=== PATIENT | male | born 1945 | race Caucasian/White ===

== ENCOUNTER → 2016-08-02 | Outpatient (REF) | payer MEDICARE ==
[2016-08-02 12:54] LABS: ALBUMIN/GLOBULIN RATIO 1.29 (1.00-1.93); ALKALINE PHOSPHATASE 87 U/L (45-117); ALT/SGPT 28 U/L (12-78); ANION GAP 10 MEQ/L (8-16); AST/SGOT 20 U/L (15-37); BILIRUBIN,TOTAL 0.8 MG/DL (0.2-1.0); BLOOD UREA NITROGEN 14 MG/DL (7-18); CALCIUM LEVEL 9.1 MG/DL (8.8-10.2); CARBON DIOXIDE LEVEL 29 MEQ/L (21-32); CHLORIDE LEVEL 94 MEQ/L (98-107); CHOLESTEROL LEVEL 180 MG/DL (<200); CREATININE FOR GFR 1.11 MG/DL (0.70-1.30); GLOMERULAR FILTRATION RATE > 60.0 (>42); GLUCOSE, FASTING 95 MG/DL (83-110); POTASSIUM SERUM 4.5 MEQ/L (3.5-5.1); SODIUM LEVEL 133 MEQ/L (136-145); TOTAL PROTEIN 7.1 GM/DL (6.4-8.2); TRIGLYCERIDES LEVEL 58 MG/DL (<150)
== END ==
LOC: M SFHCADAM 08:50
PROVIDERS: ATTEND Physician Assistant Medical
DX: I25.10 Atherosclerotic heart disease of native coronary artery without angina pectoris (principal); E78.4 Other hyperlipidemia

== ENCOUNTER → 2016-09-04 | Outpatient (CLI) | payer MEDICARE ==
--- NOTE | 2016-09-04 08:43 | REP ---
Clinical: History of abdominal aortic repair. Technique: Real time valencia scale ultrasound examination using curved array transducer. Findings: Visualized abdominal aorta is without obvious aneurysm and no periaortic fluid collections are identified. Proximal aorta 2.2 x 2.3 cm. Mid aorta 2.6 x 2.8 cm. Distal aorta at 2.8 x 2.8 cm. Right common iliac artery 0.8 x 0.7 cm. Left common iliac artery 0.9 x 0.9 cm. Impression: Normal caliber aorta. No obvious aneurysm appreciated. Signed by Sukhdeep Obrien MD 09/04/2016 08:35 A
== END ==
LOC: M RAD 07:42
PROVIDERS: ATTEND Family Medicine
DX: I71.4 Abdominal aortic aneurysm, without rupture (principal)

== ENCOUNTER → 2016-10-09 | Outpatient (REF) | payer MEDICARE ==
[2016-10-09 19:48] LABS: BLOOD UREA NITROGEN 17 MG/DL (7-18); CREATININE FOR GFR 1.25 MG/DL (0.70-1.30); GLOMERULAR FILTRATION RATE > 60.0 (>42)
== END ==
LOC: M LAB REF 09:31
PROVIDERS: ATTEND Internal Medicine Pulmonary Disease
DX: R91.8 Other nonspecific abnormal finding of lung field (principal)

== ENCOUNTER → 2016-11-12 | Outpatient (CLI) | payer MEDICARE ==
[~2016-11-12] MED LIST: ISOVUE-370 76% 100ML VIAL (Q9967) As Ordered ONE
--- NOTE | 2016-11-12 17:51 | REP ---
CT CHEST WITH IV CONTRAST: TECHNIQUE: Axial contrast enhanced images from the thoracic inlet to the upper abdomen using 100 mL Isovue 370 intravenous contrast material with multiplanar reformations. COMPARISON: 11/01/2015 and 04/22/2015. Once again there is a left upper lobe paramediastinal cystic structure identified. This does not appear to significantly enhance. It has increased in length in the AP dimension, from about 3.0 cm to 4.6 cm however it is thinner in the transverse dimension, now about 1.5 cm in maximum transverse dimension, previously 1.9 cm. It has increased in craniocaudal dimension. A calcified granuloma is seen in the left lower lobe. No significant abnormal parenchymal opacity is seen in the right lug. Normal sized mediastinal and hilar lymph nodes are present. Mild scattered atherosclerotic calcifications are seen of the thoracic aorta without aneurysm. Heart is normal in size. There is no pleural or pericardial effusion. Calcified granuloma is seen in the liver. There is a cyst in the upper pole of the left kidney. IMPRESSION: Left upper lobe paramediastinal cystic structure with lobulated margins and has become longer in the AP dimension but thinner in the transverse dimension. However it also has also appears to have increased in cranial caudal dimension. Overall the structure seems to have mildly increased in size since the prior studies in a slow, gradual fashion. No other new significant findings. Signed by Alf Sinclair MD 11/13/2016 07:43 P
== END ==
LOC: M RAD 11:09
PROVIDERS: ATTEND Internal Medicine Pulmonary Disease
DX: R91.8 Other nonspecific abnormal finding of lung field (principal)
CPT/HCPCS: 71260; Q9967

== ENCOUNTER → 2017-05-10 | Outpatient (CLI) | payer OTHER ==
--- NOTE | 2017-05-10 15:20 | REP ---
RIGHT KNEE SERIES: Five views. HISTORY: Right knee pain. FINDINGS: By views right knee demonstrate vascular calcification and some diffuse osteopenia. There is no evidence of joint effusion, joint spaces are preserved. No evidence of arthropathy. IMPRESSION: Vascular calcification and diffuse osteopenia. Otherwise negative. Signed by Rick Darden MD 05/10/2017 07:17 P
--- NOTE | 2017-05-10 15:36 | REP ---
Right hip series: Two views. History: Pain in the right leg. Comparison radiographs June 29, 2014. Findings: AP and frog-leg views of the right hip demonstrate surgical clips in the right groin soft tissues and some vascular calcification. Femoral head is smooth and rounded. Hip joint space is preserved. There is minimal superior acetabular spurring. No erosive change is seen. Impression: Minimal superior acetabular spurring. Vascular calcification and right groin surgical clips. Otherwise negative. Signed by Rick Darden MD 05/10/2017 07:17 P
== END ==
LOC: M ADAMS 14:28
PROVIDERS: ATTEND Physician Assistant Medical
DX: M25.751 Osteophyte, right hip (principal); M25.761 Osteophyte, right knee; I70.201 Unspecified atherosclerosis of native arteries of extremities, right leg; Z98.890 Other specified postprocedural states

== ENCOUNTER → 2017-08-26 | Outpatient (REF) | payer OTHER ==
[2017-08-26 13:06] LABS: BASO # 0.1 10^3/uL (0.0-0.2); BASO % 0.9 % (0.0-1.0); EOS # 0.1 10^3/uL (0.0-0.50); HEMATOCRIT 39.9 % (42.0-52.0); HEMOGLOBIN 13.9 g/dl (14.0-18.0); IMMATURE GRANULOCYTE % 0.3 % (0-3.0); LYMPH # 1.5 10^3/uL (1.5-4.5); LYMPH % 24.9 % (24.0-44.0); MEAN CORPUSCULAR HEMOGLOBIN 31.7 pg (27.0-33.0); MEAN CORPUSCULAR HGB CONC 34.8 g/dl (32.0-36.5); MEAN CORPUSCULAR VOLUME 91.1 fl (80.0-96.0); MONO # 0.7 10^3/uL (0.0-0.8); MONO % 12.4 % (0.0-5.0); NEUTROPHILS # 3.5 10^3/uL (1.8-7.7); NEUTROPHILS % 59.5 % (36.0-66.0); PLATELET COUNT, AUTOMATED 272 10^3/uL (150-450); RED BLOOD COUNT 4.38 10^6/uL (4.30-6.10); RED CELL DISTRIBUTION WIDTH 12.4 % (11.5-14.5); WHITE BLOOD COUNT 5.9 10^3/uL (4.0-10.0)
[2017-08-26 13:35] LABS: ALBUMIN 3.9 GM/DL (3.2-5.2); ALBUMIN/GLOBULIN RATIO 1.15 (1.00-1.93); ALKALINE PHOSPHATASE 91 U/L (45-117); ALT/SGPT 27 U/L (12-78); ANION GAP 10 MEQ/L (8-16); AST/SGOT 26 U/L (7-37); BLOOD UREA NITROGEN 17 MG/DL (7-18); CALCIUM LEVEL 9.1 MG/DL (8.8-10.2); CARBON DIOXIDE LEVEL 28 MEQ/L (21-32); CHLORIDE LEVEL 93 MEQ/L (98-107); CHOLESTEROL LEVEL 170 MG/DL (<200); CHOLESTEROL RISK RATIO 2.394 (<5); CREATININE FOR GFR 1.14 MG/DL (0.70-1.30); GLOMERULAR FILTRATION RATE > 60.0 (>42); GLUCOSE, FASTING 95 MG/DL (70-100); HDL CHOLESTEROL 71 MG/DL (>40); LDL CHOLESTEROL 85.6 MG/DL (<100); NON-HDL-C 99 MG/DL; POTASSIUM SERUM 4.4 MEQ/L (3.5-5.1); SODIUM LEVEL 131 MEQ/L (136-145); TOTAL PROTEIN 7.3 GM/DL (6.4-8.2); TRIGLYCERIDES LEVEL 67 MG/DL (<150)
== END ==
LOC: M SFHCADAM 08:41
DX: I25.10 Atherosclerotic heart disease of native coronary artery without angina pectoris (principal); I10 Essential (primary) hypertension; E55.9 Vitamin D deficiency, unspecified
CPT/HCPCS: 84443

== ENCOUNTER → 2017-12-03 | Outpatient (CLI) | payer OTHER | LOC: M RAD 12:38 | DX: R91.8 Other nonspecific abnormal finding of lung field (principal) | CPT/HCPCS: 71250 ==

== ENCOUNTER → 2018-03-31 | Outpatient (REF) | payer OTHER ==
[2018-03-31 13:18] LABS: BASO % 0.6 % (0.0-1.0); EOS # 0.1 10^3/uL (0.0-0.50); EOS % 1.5 % (0.0-3.0); HEMATOCRIT 39.8 % (42.0-52.0); HEMOGLOBIN 14.2 g/dl (13.5-17.5); IMMATURE GRANULOCYTE % 0.4 % (0-3.0); LYMPH # 1.4 10^3/uL (1.5-4.5); LYMPH % 25.9 % (24.0-44.0); MEAN CORPUSCULAR HEMOGLOBIN 32.6 pg (27.0-33.0); MEAN CORPUSCULAR HGB CONC 35.7 g/dl (32.0-36.5); MEAN CORPUSCULAR VOLUME 91.3 fl (80.0-96.0); MONO # 0.8 10^3/uL (0.0-0.8); MONO % 14.6 % (0.0-5.0); PLATELET COUNT, AUTOMATED 252 10^3/uL (150-450); RED BLOOD COUNT 4.36 10^6/uL (4.30-6.10); RED CELL DISTRIBUTION WIDTH 12.4 % (11.5-14.5); WHITE BLOOD COUNT 5.2 10^3/uL (4.0-10.0)
[2018-03-31 14:45] LABS: ALBUMIN 3.7 GM/DL (3.2-5.2); ALBUMIN/GLOBULIN RATIO 1.06 (1.00-1.93); ALKALINE PHOSPHATASE 77 U/L (45-117); ALT/SGPT 31 U/L (12-78); ANION GAP 11 MEQ/L (8-16); AST/SGOT 27 U/L (7-37); BILIRUBIN,TOTAL 1.2 MG/DL (0.2-1.0); BLOOD UREA NITROGEN 14 MG/DL (7-18); CALCIUM LEVEL 8.5 MG/DL (8.8-10.2); CARBON DIOXIDE LEVEL 25 MEQ/L (21-32); CHLORIDE LEVEL 94 MEQ/L (98-107); CHOLESTEROL LEVEL 161 MG/DL (<200); CHOLESTEROL RISK RATIO 2.639 (<5); CREATININE FOR GFR 0.99 MG/DL (0.70-1.30); GLOMERULAR FILTRATION RATE > 60.0 (>42); GLUCOSE, FASTING 82 MG/DL (70-100); HDL CHOLESTEROL 61 MG/DL (>40); LDL CHOLESTEROL 89 MG/DL (<100); NON-HDL-C 100 MG/DL; POTASSIUM SERUM 4.7 MEQ/L (3.5-5.1); SODIUM LEVEL 130 MEQ/L (136-145); TOTAL 25(OH) VITAMIN D 35.2 NG/ML (30.0-100.0); TOTAL PROTEIN 7.2 GM/DL (6.4-8.2); TRIGLYCERIDES LEVEL 54 MG/DL (<150)
== END ==
LOC: M SFHCADAM 07:53
DX: I25.10 Atherosclerotic heart disease of native coronary artery without angina pectoris (principal); E55.9 Vitamin D deficiency, unspecified; I10 Essential (primary) hypertension; E78.4 Other hyperlipidemia; F17.200 Nicotine dependence, unspecified, uncomplicated; I71.4 Abdominal aortic aneurysm, without rupture; M51.36 Other intervertebral disc degeneration, lumbar region
CPT/HCPCS: 84443

== ENCOUNTER → 2019-06-23 | Outpatient (CLI) | payer MEDICARE, OTHER ==
--- NOTE | 2019-06-23 16:55 | REP ---
PET/CT: History: Solitary pulmonary nodule. Comparisons: Comparison study April 15, 2014. Comparison CT study of the chest December 03, 2017. TECHNIQUE: 1 hour 11 minutes following the intravenous injection of a 8.60 mCi dose of F-18 FDG, three-dimensional PET scintigraphy is acquired from the skull base to the proximal thighs. Triplanar noncontrast CT scanning is acquired through the same anatomic range for attenuation correction, and image registration with scan parameters optimized to minimize radiation exposure to the patient. PET scintigraphy and CT datasets were fused and displayed on a workstation with multiplanar and projection display capability. PET/CT Findings: The previously noted left upper lobe nodular soft tissue abnormality is again seen to have extended further anteriorly than on the December 03, 2017 prior study. It is considerably advanced compared to the April 15, 2014 prior PET-CT. Head and neck soft tissues show no significant abnormality. There is some hypermetabolic normal fat in the posterior neck soft tissues. No evidence of adenopathy or corresponding soft tissue mass. Left upper lobe lesion is now mildly hypermetabolic. Maximum standard uptake value is 2.77. This activity is a little more pronounced anteriorly than in the posterior extent. There is no evidence of hilar or mediastinal hypermetabolic adenopathy. No other pulmonary parenchymal hypermetabolic uptake is appreciated. On sagittal multiplanar re-formation imaging the lesion is again seen to be elongate in a roughly branching distribution through the anterior segment of the left upper lobe. This suggests endobronchial or peribronchial distribution. There is no abnormal hypermetabolic uptake in the adrenals, liver or spleen. No abnormal hypermetabolic uptake is seen in the abdomen or pelvis. Impression: Gradually progressive branching nodular mildly hypermetabolic lesion in the left upper lobe anterior segment now measuring 7.4 cm in anteroposterior dimension. Low grade malignancy cannot be excluded. No other suspicious abnormal hypermetabolic uptake. Electronically Signed by Rick Darden MD 06/23/2019 05:22 P
== END ==
LOC: M PLARAD 11:18
PROVIDERS: ATTEND Physician Assistant Medical
DX: R91.1 Solitary pulmonary nodule (principal)
CPT/HCPCS: 78815; A9552

== ENCOUNTER → 2019-08-12 | Outpatient (CLI) | payer OTHER ==
--- NOTE | 2019-08-13 03:36 | REP ---
Clinical: Bilateral lower leg pain. Technique: Real time sinclari scale and color Doppler evaluation of the bilateral lower extremity arterial vasculature using linear high frequency transducer. Findings: Sinclair scale and color images demonstrate significant amounts of atheromatous plaquing bilaterally with area of stenosis in the right profunda and distal right anterior tibial arteries. Doppler interrogation demonstrates biphasic arterial wave forms bilaterally. Right brachial artery at 140 mmHg Left brachial artery at 120 mmHg Peak systolic velocities (cm/sec) RIGHT LEFT VINICIO 0.9 0.9 Common femoral artery 39.7 75.4 Profunda femoris 62/173 62 SFA (proximal) 67.5 84.5 SFA (mid) 73 66 SFA (distal) 63 41 Popliteal artery 42 40 GEOFFREY (prox.) 20.2 39.1 Tibioperoneal trunk 46 47 COAL MILL OPERATOR (prox.) 58 32.5 COAL MILL OPERATOR (distal) 68.3 20.1 GEOFFREY (distal) 117 57 Impression: Severe bilateral atheromatous plaquing. Stenosis in the right profunda artery and presumed stenosis/narrowing through the right distal anterior tibial artery. Electronically Signed by Sukhdeep Obrien MD 08/13/2019 03:27 A
== END ==
LOC: M RAD 07:58
PROVIDERS: ATTEND Physician Assistant
DX: M79.606 Pain in leg, unspecified (principal); F17.210 Nicotine dependence, cigarettes, uncomplicated; I70.203 Unspecified atherosclerosis of native arteries of extremities, bilateral legs; I77.1 Stricture of artery

== ENCOUNTER → 2019-08-17 | Outpatient (CLI) | payer OTHER ==
--- NOTE | 2019-08-18 03:38 | REP ---
Clinical: Symptoms related to hypertension with history of heart disease and smoking. Technique: Sinclair scale and color Doppler evaluation using linear high frequency transducer Findings: Two-dimensional sinclair scale and color images demonstrate moderate partially calcified bilateral atheromatous plaquing (right greater than left) with areas of narrowing noted through the carotid bulbs and proximal internal carotid artery. Color Doppler interrogation demonstrates arterial wave patterns with moderate spectral broadening. Normal flow direction is appreciated in the bilateral vertebral arteries. RIGHT (cm/s) LEFT (cm/s) ICA peak systolic velocity 76.4 49.1 ICA diastolic velocity 21.1 17.2 ECA peak systolic velocity 116.0 65.2 CCA peak systolic velocity 71.9 67.4 ICA/CCA ratio 1.06 0.73 Impression: Based on standards, narrowing is felt to be in the less than 50% range bilaterally (right greater than left). Electronically Signed by Sukhdeep Obrien MD 08/18/2019 03:29 A
== END ==
LOC: M RAD 12:18
PROVIDERS: ATTEND Physician Assistant
DX: I65.23 Occlusion and stenosis of bilateral carotid arteries (principal); F17.210 Nicotine dependence, cigarettes, uncomplicated

== ENCOUNTER → 2020-06-30 | Outpatient (CLI) | payer OTHER ==
[~2020-06-30] MED LIST changes: +AMLO1TAB25 PO; +ASPI81TA86 PO; -ISOVUE-370 76% 100ML VIAL (Q9967) As Ordered ONE; +ISOVUE-370 76% 100ML VIAL As Ordered ONE; +LISI20TA20 PO; +MAGN400C2 PO; +ROSU40TA4 PO
--- NOTE | 2020-06-30 10:06 | REP ---
INDICATION: ATHSCL HEART DISEASE OF [place] CORONARY ARTERY W/O ANG PCTRS. Chronic airway obstruction. Patient gives a history of lung carcinoma left upper lobe status post resection. COMPARISON: Comparison chest CT study December 03, 2017. Comparison PET scan June 23, 2019.. TECHNIQUE: 75 mL of intravenous Isovue 370 is administered. Helical scanning is acquired and 3 mm axial images are re-formatted. Coronal and sagittal MPR and coronal MIP images are provided. FINDINGS: The patient is status post left thoracotomy and left upper lobectomy. There is no evidence of hilar or mediastinal mass or adenopathy. The branching nodular soft tissue mass lesion previously noted in the left upper lobe has been resected. No pulmonary mass lesion or significant pulmonary nodule is observed. There are mild emphysematous changes in the right lower lobe and scattered areas of mild peripheral subpleural interstitial fibrosis are seen in the right upper lobe. No infiltrate or atelectasis. No pleural or pericardial effusion is appreciated. Vascular calcification is seen in the aorta diffusely and in the coronary artery distribution. Normal adrenal glands are observed. There is mild diffuse fatty infiltration of the liver. A small cyst is seen in the upper pole left kidney. No significant bony abnormality is appreciated. IMPRESSION: Postthoracotomy left upper lobectomy changes. Otherwise no acute abnormality. No evidence of recurrent mass, adenopathy, or new pulmonary nodule. <Electronically signed by Rush Darden > 06/30/20 1002
== END ==
LOC: M RAD 08:54
PROVIDERS: ATTEND Nurse Practitioner
DX: C34.12 Malignant neoplasm of upper lobe, left bronchus or lung (principal); I25.10 Atherosclerotic heart disease of native coronary artery without angina pectoris; M54.2 Cervicalgia; J44.9 Chronic obstructive pulmonary disease, unspecified
CPT/HCPCS: 71260; Q9967

== ENCOUNTER → 2020-07-18 | Outpatient (CLI) | payer OTHER ==
[~2020-07-18] MED LIST changes: -ISOVUE-370 76% 100ML VIAL As Ordered ONE
--- NOTE | 2020-07-18 11:29 | REP ---
INDICATION: ATHSCL [place] ARTERIES OF EXTRM CLAUDICATION COMPARISON: 08/12/2019. TECHNIQUE: Real time sinclair scale and Duplex Doppler evaluation of the bilateral lower extremity arterial vasculature using linear high frequency transducer. FINDINGS: Sinclair scale and duplex doppler images demonstrate moderate diffuse plaque bilaterally, with severe plaquing and narrowing in the distal calf arteries. There are diffuse biphasic waveforms bilaterally with monophasic waveforms in the distal right anterior posterior tibial arteries, as well as in the left profunda and distal left posterior tibial artery. Is trickle flow in the distal left posterior tibial artery. Peak systolic velocities (cm/sec) Common femoral artery: Right 51; Left 50 Profunda femoris: Right 70; Left 34 SFA (proximal): Right 57; Left 50 SFA (mid): Right 53; Left 53 SFA (distal): Right 81; Left 36 Popliteal artery: Right 36; Left 36 GEOFFREY (prox.): Right 44; Left 49 Tibioperoneal trunk: Right 45; Left 35 PACKER INSPECTOR (prox.): Right 50; Left 28 PACKER INSPECTOR (distal): Right 34; Left 71 GEOFFREY (distal): Right 47; Left 30 VINICIO right 0.89, left 0.93. IMPRESSION: Moderate plaquing and narrowing bilaterally. Severe plaquing distal calf arteries. No occlusion. Trickle flow distal left posterior tibial artery. <Electronically signed by Alf Sinclair > 07/18/20 [id number]
== END ==
LOC: M RAD 09:32
PROVIDERS: ATTEND Physician Assistant
DX: I70.213 Atherosclerosis of native arteries of extremities with intermittent claudication, bilateral legs (principal)

== ENCOUNTER 2021-09-22 15:29 | Emergency (ER) | payer MEDICARE ==
[~2021-09-22] VITALS: Ht 165.1 cm; Wt 63.6 kg
[~2021-09-22 15:29] MED LIST changes: -LISI20TA20 PO; +LISI20TA37 PO
[2021-09-22] MEDS ORDERED: PERCOCET 5MG/325MG TAB PO ONE (16:50)
[2021-09-22 17:12] VITALS: O2SAT 98
[2021-09-22] MEDS ORDERED: OXYC1TAB23 PO (18:39)
[2021-09-22 18:41] VITALS: BP 170/94
== END 2021-09-22 19:15 | disposition home or self-care (01) ==
LOC: M ED 16:07
DX: S76.012A Strain of muscle, fascia and tendon of left hip, initial encounter (principal); X50.9XXA Other and unspecified overexertion or strenuous movements or postures, initial encounter; Y92.89 Other specified places as the place of occurrence of the external cause; I10 Essential (primary) hypertension; E78.9 Disorder of lipoprotein metabolism, unspecified; Z79.899 Other long term (current) drug therapy; Z79.82 Long term (current) use of aspirin; F17.200 Nicotine dependence, unspecified, uncomplicated